=== PATIENT | female | born 1985 ===

== ENCOUNTER 2018-08-22 09:21 | Emergency (ER) | payer SELFPAY ==
[2018-08-22 09:32] VITALS: BMI 33.2
--- NOTE | 2018-08-22 09:58 | ED PDOC ---
HPI:STROKE - Time Time: 09:57 - Historian Historian: Patient - Chief Complaint Chief Complaint: Weakness, Numbness - Onset Date: 08/22/18 Onset: Hours (2) - Context Context: Standing - Location Locate left: Lower extremity - Radiation Radiation: None - Notes: Notes:: 33yo female, otherwise well, with no past medical history, comes to ER for evaluation of sudden onset left sided paresthesia and numbness occurring 2 hours prior to arrival. it is more the left arm than the left leg. 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 She denies any associated headache, dizziness, back pain, or neck pain. Patient has never had such symptoms before and now reports feeling anxious due to her presentation. No additional complaints. PMD: Non [facility] provider [facility] NIHSS Stroke Scale - Date/Time Evaluation Performed Date Performed: 08/22/18 Time Performed: 09:57 When Was NIHSS Performed: Code Stroke - How Severe is the Stroke Level of Consciousness: 0=Alert LOC to Questions: 0=Both comments correct LOC to commands: 0=Obeys both correctly Best Gaze: 0=Normal Visual: 0=No visual loss Facial: 0=Normal Motor Arm - Left: 0=No drift Motor Arm - Right: 0=No drift Motor Leg - Left: 0=No drift Motor Leg - Right: 0=No drift Limb Ataxia: 0=Absent Sensory: 1=Mild to moderate loss Best Language: 0=No aphasia Dysarthia: 0=Normal articulation Extinction & Inattention (Neglect): 0=Normal, no object Score: 1 rTPA Inclusion/Exclusion - Refusal of Treatment Patient Refused Treatment: No - Inclusion Criteria for Altepase All of the below criteria for inclusion were reviewed: No Patient is 18 years or Older: Yes The Clinical Diagnosis of Ischemic Stroke That is Causing a Potentially Disabling Neurological Deficit: No Time of Onset is Well Established to be Less Than 270 Minute Before Treatment Would Begin: No Risk/Benefit Discussed With Patient/Family Member Present: No Past Medical History Reviewed: Historical Data, Nursing Documentation, Vital Signs Vital Signs: Last Vital Signs Temp 98.8 F 08/22/18 09:32 Pulse 81 08/22/18 09:32 Resp 20 08/22/18 09:32 BP 126/82 08/22/18 09:32 Pulse Ox 99 08/22/18 09:32 - Medical History PMH: No Chronic Diseases - Surgical History Surgical History: No Surg Hx - Family History Family History: States: No Known Family Hx - Social History Current smoker - smoking cessation education provided: No Alcohol: None Drugs: Denies - Home Medications Home Medications: Ambulatory Orders Medication Instructions Recorded Aspirin/Acetaminophen/Caffeine 1 tab PO DAILY PRN 08/22/18 [Excedrin Migraine Caplet] - Allergies Allergies/Adverse Reactions: Allergies Allergy/AdvReac Type Severity Reaction Status Date / Time shrimp Allergy SWELLING Verified 08/22/18 09:52 Review of Systems ROS Statement: Except As Marked, All Systems Reviewed And Found Negative Constitutional: Negative for: Fever, Chills Eyes: Negative for: Vision Change Cardiovascular: Negative for: Palpitations Respiratory: Negative for: Shortness of Breath Musculoskeletal: Negative for: Neck Pain, Back Pain Neurological: Positive for: Weakness (left sided), Numbness (left sided). Negative for: Change in Speech, Confusion, Seizures, Altered Mental Status, Headache, Dizziness Psych: Positive for: Anxiety Physical Exam - Reviewed Nursing Documentation Reviewed: Yes Vital Signs Reviewed: Yes - Physical Exam Appears: Positive for: Well, Non-toxic (anxious) Head Exam: Positive for: ATRAUMATIC, NORMAL INSPECTION, NORMOCEPHALIC Skin: Positive for: Normal Color Eye Exam: Positive for: EOMI, PERRL ENT: Positive for: Normal ENT Inspection Neck: Positive for: Supple Cardiovascular/Chest: Positive for: Regular Rate, Rhythm. Negative for: Tachycardia Respiratory: Positive for: Normal Breath Sounds. Negative for: Wheezing Pulses-Radial (L): 2+ Pulses-Radial (R): 2+ Gastrointestinal/Abdominal: Positive for: Soft. Negative for: Tenderness Back: Positive for: Normal Inspection. Negative for: L CVA Tenderness, R CVA Tenderness, Vertebral Tenderness Extremity: Positive for: Normal ROM. Negative for: Pedal Edema, Deformity Neurological/Psych: Positive for: Awake, Alert, Symmetric/Intact Strength (5/5 strength of all extremities), Oriented (x 3), Motor/Sensory Deficits (decreased sensation in left arm; normal motor strength), core feeder II-XII (intact). Negative for: Lethargic, Listless, Facial Droop - Laboratory Results Result Diagrams: 08/22/18 10:20 08/22/18 10:20 - ECG ECG: Positive for: Interpreted By Me, Viewed By Me ECG Rhythm: Positive for: Normal QRS, Normal ST Segment, Sinus Rhythm Rate: 76 O2 Sat by Pulse Oximetry: 99 (RA) Pulse Ox Interpretation: Normal Medical Decision Making Medical Decision [place] female with left sided numbness; r/o stroke Plan: Code stroke called at 0957 CT Head w/o contrast Labs IV Fluids [address] Garcia (radiologist balloon maker), who states CT Head negative. CT Head FINDINGS: HEMORRHAGE: No intracranial hemorrhage. BRAIN: No mass effect or edema. No atrophy or chronic microvascular ischemic changes. VENTRICLES: Unremarkable. No hydrocephalus. CALVARIUM: Unremarkable. PARANASAL SINUSES: Unremarkable as visualized. No significant inflammatory changes. MASTOID AIR CELLS: Unremarkable as visualized. No inflammatory changes. OTHER FINDINGS: None. IMPRESSION: Normal CT of the Head. No evidence of acute infarct. No intracranial mass or hemorrhage. The findings in this examination were discussed by telephone with Dr. Argueta at 10:13 a.m. on 08/22/2018. [address] [place], neurologist balloon maker, who state pt not cadidate for TPA and recommends MRI Brain, if negative, patient can go home. Orders placed as recommended; discussed with patient as well, who is agreeable. 1153 labs reviewed, mild hyperglycemia and mild high cholesterol no other clinically significant abnormalities. 1159 CXR FINDINGS: Examination limited by habitus and hypoinflation. LUNGS: No focal consolidation. Please note that chest x-ray has limited sensitivity for the detection of pulmonary masses. PLEURA: No significant pleural effusion identified. No definite pneumothorax . CARDIOVASCULAR: The cardiomediastinal silhouette appears within normal limits of size. No significant atherosclerotic calcification present. OSSEOUS STRUCTURES: No acute osseous abnormality identified. VISUALIZED UPPER ABDOMEN: Unremarkable. OTHER FINDINGS: None. IMPRESSION: Hypoinflation. No focal consolidation. 1317 Brain MRI FINDINGS: HEMORRHAGE: None DWI: No evidence of an acute or early subacute infarction. BRAIN PARENCHYMA: No mass effect or edema. No atrophy or chronic microvascular ischemic changes. VENTRICLES: Unremarkable. No hydrocephalus. CRANIUM: Unremarkable. ORBITS: Grossly unremarkable. PARANASAL SINUSES/MASTOIDS: Clear VASCULAR SYSTEM: Skull base flow voids intact. OTHER FINDINGS: None. IMPRESSION: Unremarkable non contrast enhanced MRI of the brain. 0214 Upon reevaluation, patient is stable for discharge with outpatient followup with neurologist. Dr montana made aware and agrees with plan. Pts symptoms have resolved, parasthesia improved. Patient is aware that sugar and cholesterol are elevated and recommending outpatient follow up. Scribe Attestation: Documented by Alyssa Neal, acting as a scribe for Kaitlyn Argueta MD. Provider Scribe Attestation: All medical record entries made by the Scribe were at my direction and personally dictated by me. I have reviewed the chart and agree that the record accurately reflects my personal performance of the history, physical exam, medical decision making, and the department course for this patient. I have also personally directed, reviewed, and agree with the discharge instructions and disposition. Disposition - Clinical Impression Clinical Impression: Paresthesia, Arm paresthesia, left - Patient ED Disposition Is Patient to be Admitted: No Counseled Patient/Family Regarding: Studies Performed, Diagnosis, Need For Followup - Disposition Referrals: [facility] [Outside] Carolyn Montana MD [Medical Doctor] - Disposition: Routine/Home Disposition Time: 02:14 Condition: IMPROVED Additional Instructions: follow up as an outpatient with neurologist in 1-2 days return to the ED with any worsening or concerning symptoms Instructions: Paresthesias (DC) Forms: [employer] (Khmer)
[2018-08-22] MEDS ORDERED: Sodium Chloride 0.9% 1,000 ML IV SCH (10:00)
--- NOTE | 2018-08-22 10:17 | CT ---
Date of service: 08/22/2018 PROCEDURE: CT HEAD WITHOUT CONTRAST. HISTORY: TIA, initial exam COMPARISON: Not available TECHNIQUE: Axial computed tomography images were obtained through the head/brain without intravenous contrast. Radiation dose: Total exam DLP = 831.89 mGy-cm. This CT exam was performed using one or more of the following dose reduction techniques: Automated exposure control, adjustment of the mA and/or kV according to patient size, and/or use of iterative reconstruction technique. FINDINGS: HEMORRHAGE: No intracranial hemorrhage. BRAIN: No mass effect or edema. No atrophy or chronic microvascular ischemic changes. VENTRICLES: Unremarkable. No hydrocephalus. CALVARIUM: Unremarkable. PARANASAL SINUSES: Unremarkable as visualized. No significant inflammatory changes. MASTOID AIR CELLS: Unremarkable as visualized. No inflammatory changes. OTHER FINDINGS: None. IMPRESSION: Normal CT of the Head. No evidence of acute infarct. No intracranial mass or hemorrhage. The findings in this examination were discussed by telephone with Dr. Argueta at 10:13 a.m. on 08/22/2018.
[2018-08-22 10:45] LABS: BASO # 0.1 K/uL (0.0-0.2); BASO % 0.7 % (0.0-2.0); EOS % 0.6 % (0.0-4.0); HEMOGLOBIN 13.3 g/dL (12.0-16.0); LYMPH # 1.4 K/uL (1.0-4.3); LYMPH % 16.5 % (20.0-40.0); MEAN CELL VOLUME 88.8 fl (81.0-99.0); MEAN CORPUSCULAR HEMOGLOBIN 30.1 pg (27.0-31.0); MEAN CORPUSCULAR HGB CONC 33.9 g/dL (33.0-37.0); MEAN PLATELET VOLUME 7.5 fl (7.2-11.7); MONO # 0.7 K/uL (0.0-0.8); MONO % 8.4 % (0.0-10.0); NEUT # 6.1 K/uL (1.8-7.0); NEUT % 73.8 % (50.0-75.0); RBC 4.42 Mil/uL (3.80-5.20); RED CELL DISTRIBUTION WIDTH 14.1 % (11.5-14.5); WHITE BLOOD COUNT 8.2 K/uL (4.8-10.8)
[2018-08-22 10:47] LABS: ALB/GLOB RATIO 1.1 (1.0-2.1); ALBUMIN 4.5 g/dL (3.5-5.0); ALT/SGPT 13 U/L (9-52); AST/SGOT 24 U/L (14-36); BLOOD UREA NITROGEN 9 mg/dl (7-17); CALCIUM 9.2 mg/dL (8.4-10.2); GFR NON-AFRICAN AMERICAN > 60; HDL CHOLESTEROL 49 MG/DL (30-70); INR 1.1; PROTHROMBIN TIME 12.2 Seconds (9.8-13.1)
[2018-08-22 10:49] LABS: PARTIAL THROMBOPLASTIN TIME 35.9 Seconds (25.6-37.1)
[2018-08-22] MEDS ORDERED: Aspirin 325 mg EC Tablets PO ONE (10:54)
[2018-08-22 10:59] LABS: LDL CHOLESTEROL 132 mg/dL (0-129)
[2018-08-22 11:00] VITALS: TEMP 97.6
--- NOTE | 2018-08-22 11:55 | RAD ---
HISTORY: Code Stroke COMPARISON: None available. TECHNIQUE: Chest, one view. FINDINGS: Examination limited by habitus and hypoinflation. LUNGS: No focal consolidation. Please note that chest x-ray has limited sensitivity for the detection of pulmonary masses. PLEURA: No significant pleural effusion identified. No definite pneumothorax . CARDIOVASCULAR: The cardiomediastinal silhouette appears within normal limits of size. No significant atherosclerotic calcification present. OSSEOUS STRUCTURES: No acute osseous abnormality identified. VISUALIZED UPPER ABDOMEN: Unremarkable. OTHER FINDINGS: None. IMPRESSION: Hypoinflation. No focal consolidation.
--- NOTE | 2018-08-22 13:21 | MRI ---
Date of service: 08/22/2018 PROCEDURE: MRI BRAIN WITHOUT CONTRAST HISTORY: parasthesia l side COMPARISON: None available. TECHNIQUE: Multiplanar, multisequence MR images of the brain were obtained without intravenous contrast enhancement. FINDINGS: HEMORRHAGE: None DWI: No evidence of an acute or early subacute infarction. BRAIN PARENCHYMA: No mass effect or edema. No atrophy or chronic microvascular ischemic changes. VENTRICLES: Unremarkable. No hydrocephalus. CRANIUM: Unremarkable. ORBITS: Grossly unremarkable. PARANASAL SINUSES/MASTOIDS: Clear VASCULAR SYSTEM: Skull base flow voids intact. OTHER FINDINGS: None. IMPRESSION: Unremarkable non contrast enhanced MRI of the brain.
[2018-08-22 14:47] VITALS: BP 120/70; RESP 19
--- NOTE | 2018-08-22 19:03 | CARD ---
APPROVED REPORT Date of service: 08/22/2018 EKG Measurement Heart [id number] <Conclusion> Normal sinus rhythm Normal ECG
[2018-08-23 08:13] VITALS: PULSE 76; O2SAT 99
== END 2018-08-22 14:48 | disposition home or self-care (01) ==
LOC: H.ER 09:21
DX: R20.0 Anesthesia of skin (principal)
CPT/HCPCS: 70450; 70551; 71045; 80053; 80061; 81025; 82948; 83036; 84484; 85025; 85610; 85730; 86850; 86900; 93005; 99285; J7030